=== PATIENT | male | born 1985 | race American Indian/Alaskan Native ===

== ENCOUNTER 2020-07-22 13:02 | Emergency (ER) | payer SELFPAY ==
[2020-07-22 13:17] VITALS: BP 133/67
[2020-07-22] MEDS ORDERED: HYDROcodone/ACETAMINOPHEN 10-325MG TAB PO ONE (13:37)
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
== END 2020-07-22 15:15 | disposition home or self-care (01) ==
LOC: EEVIPCON 13:02 → ED 13:02
DX: S52.91XA Unspecified fracture of right forearm, initial encounter for closed fracture (principal); S16.1XXA Strain of muscle, fascia and tendon at neck level, initial encounter; S00.83XA Contusion of other part of head, initial encounter; S20.212A Contusion of left front wall of thorax, initial encounter; T07.XXXA Unspecified multiple injuries, initial encounter; R51.9 Headache, unspecified; Z79.899 Other long term (current) drug therapy; Z91.018 Allergy to other foods; Y04.8XXA Assault by other bodily force, initial encounter; Y93.89 Activity, other specified; Y92.89 Other specified places as the place of occurrence of the external cause; Y99.8 Other external cause status
CPT/HCPCS: 70450; 70486; 72125

== ENCOUNTER 2020-07-26 09:07 | Emergency (ER) | payer SELFPAY ==
[2020-07-26 09:24] VITALS: BP 118/69
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
== END 2020-07-26 10:30 | disposition left against medical advice (07) ==
LOC: ED 09:07
DX: Z53.21 Procedure and treatment not carried out due to patient leaving prior to being seen by health care provider (principal)

== ENCOUNTER 2020-09-01 15:03 | Emergency (ER) | payer SELFPAY ==
[2020-09-01] MEDS ORDERED: MORPHINE 4 MG/1 ML INJ IV ONE (15:54)
[2020-09-01] MEDS ORDERED: ONDANSETRON 4 MG/2 ML INJ IV ONE (15:54)
[2020-09-01] MEDS ORDERED: levETIRAcetam 1000 MG/NS 0.75% 1,000 MG/100 ML BAG IV ONE (15:54)
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
[2020-09-01 16:22] LABS: Basophils # (Auto) 0.1 K/mm3 (0.0-0.1); Basophils % (Auto) 0.5 % (0.0-1.8); Eosinophils % (Auto) 0.3 % (0.0-4.3); Hematocrit 42.7 % (35.5-45.6); Hemoglobin 15.1 gm/dl (11.8-15.2); Lymphocytes % (Auto) 9.6 % (13.4-35.0); Mean Corpuscular HGB Conc 35 % (32-34); Mean Corpuscular Volume 103 fl (84-94); Monocytes # (Auto) 0.6 K/mm3 (0.0-0.8); Platelet Count 272 K/mm3 (140-440); Red Blood Count 4.15 M/mm3 (3.65-5.03); Red Cell Distribution Width 12.4 % (13.2-15.2)
[2020-09-01 16:37] LABS: BUN/Creatinine Ratio 7; Blood Urea Nitrogen 8 mg/dL (9-20); Calcium 9.3 mg/dL (8.4-10.2); Hemolysis Index 10
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
[2020-09-01 20:29] VITALS: BP 120/75
== END 2020-09-01 18:32 | disposition home or self-care (01) ==
LOC: ED 15:03
DX: G40.909 Epilepsy, unspecified, not intractable, without status epilepticus (principal); Z91.018 Allergy to other foods; Z79.899 Other long term (current) drug therapy
CPT/HCPCS: 36415; 70450; 80048; 83735; 85025; 96374; 96375; 99284; J1953; J2270; J2405; 93005